=== PATIENT | female | born 1985 | race Caucasian/White ===

== ENCOUNTER 2023-11-13 09:45 | Day surgery (SDC) | payer BC, MEDICAID ==
[~2023-11-13] VITALS: Ht 154.9 cm; Wt 56.7 kg
[2023-11-13 10:28] LABS: HCG,QUAL RESULT NEGATIVE (NEGATIVE)
[2023-11-13] MEDS ORDERED: BUPIVACAINE /EPINEPHRINE/PF 0.25% 30 ML VIAL ONE (11:23)
[2023-11-13 11:40] VITALS: O2SAT 100
[2023-11-13] MEDS ORDERED: METOCLOPRAMIDE HCL 10 MG/2 ML VIAL IVP PRN (12:00)
[2023-11-13] MEDS ORDERED: IBUPROFEN 600 MG TABLET PO ONE (12:00)
[2023-11-13] MEDS ORDERED: HYDROmorphone 1 MG/ML INJ. CARTRIDGE IVP PRN (12:00)
[2023-11-13] MEDS ORDERED: ONDANSETRON HCL 4 MG/2 ML VIAL ONE (13:30)
[2023-11-13] MEDS: ONDANSETRON HCL 4 MG/2 ML VIAL IVP PRN (13:33)
[2023-11-13 14:50] VITALS: BP_SYST 104; PULSE 64; RESP 20
== END 2023-11-13 14:13 | disposition home or self-care (01) ==
LOC: SDS 09:45 → SMU 09:47 → SDS 14:13
PROVIDERS: ATTEND Obstetrics & Gynecology
DX: Z30.2 Encounter for sterilization (principal); E78.5 Hyperlipidemia, unspecified
CPT/HCPCS: 87081; 58670; 84703; J3490; J2405; J2704; J0330; J3010; J7050; C1727